=== PATIENT | female | born 1995 | race Caucasian/White ===

== ENCOUNTER 2023-08-10 07:30 | Emergency (ER) | payer OTHER, SELFPAY ==
[2023-08-10 07:35] VITALS: BP 123/84; PULSE 69; RESP 18; TEMP 37.2; O2SAT 99; BMI 31.4
--- NOTE | 2023-08-10 07:48 | DI.RAD.S_ITS ---
PROCEDURE: XR FOOT LT MIN 3V INDICATIONS: L great toe pain after foot smash injury TECHNIQUE: 3 views of the foot were acquired. COMPARISON: None. FINDINGS: Bones: Acute transverse fracture through 1st distal phalangeal tuft is seen with slight distal displacement of the fractured fragment . No other fracture or dislocation. No suspicious bony lesions. Soft tissues: Soft tissue swelling surrounding great toe is seen. No tibiotalar joint effusion. Achilles tendon appears normal. IMPRESSION: Acute slightly displaced fracture through 1st distal phalangeal tuft as above. Dictated by: Flex Hale M.D. on 08/10/2023 at 8:23 Approved by: Flex Hale M.D. on 08/10/2023 at 8:24
--- NOTE | 2023-08-10 07:49 | ED_ITS ---
HPI - Extremity Injury (Lower) General Chief Complaint: Extremity Injury, Lower Stated Complaint: smashed foot at work Time Seen by Provider: 08/10/23 07:47 Source: patient Mode of arrival: Ambulatory History of Present Illness HPI Narrative: 27-year-old female who is here for evaluation of a left great toe injury. She states while she was work she had a heavy steel casing for a bridge fall on her toe. She is no ankle tenderness. No knee tenderness. She states that her tetanus is up-to-date. Offer injuries seemed to be localized to her left great toe. Related Data Previous Rx's Medication Instructions Recorded cephalexin 500 mg capsule 500 mg PO QID 5 days #20 caps 08/10/23 hydrocodone 5 mg-acetaminophen 325 1 tab PO Q4-6H PRN pain #10 tabs 08/10/23 mg tablet Allergies Allergy/AdvReac Type Severity Reaction Status Date / Time avocado Allergy Hives Verified 08/10/23 07:42 broccoli Allergy Hives Verified 08/10/23 07:42 seafood Allergy Severe Difficulty Uncoded 08/10/23 07:42 Breathing Review of Systems Constitutional Constitutional: Reports system reviewed and no additional complaints, except as documented Musculoskeletal Musculoskeletal: Reports system reviewed and no additional complaints, except as documented Integumentary/Breasts Skin/Breast: Reports system reviewed and no additional complaints, except as documented Neurologic Neurologic: Reports system reviewed and no additional complaints, except as documented Hematologic/Lymphatic On Anticoagulants: No Patient History Social History Smoking Status: Former smoker Smoking Status: Former smoker alcohol intake frequency: a few times a week Substance Use Type: does not use Exam Initial Vital Signs Initial Vital Signs: Vital Signs Temperature 99.0 F 08/10/23 07:35 Pulse Rate 69 08/10/23 07:35 Respiratory Rate 18 08/10/23 07:35 Blood Pressure 123/84 08/10/23 07:35 Pulse Oximetry 99 08/10/23 07:35 Oxygen Delivery Method Room Air 08/10/23 07:35 HENMT Head: normal to inspection and normocephalic Cardio Pulses: dorsalis pedis present on the left Skin Other: Laceration just proximal to the left great toenail Neuro Sensory Exam: no sensory deficits noted Extrem Other: No tenderness on the left mid foot. Her left hindfoot left ankle left leg no discomfort. Home of her discomfort seems to be on the left great toe. There is a 2 cm laceration just proximal to the nail of the left toe. Procedures Laceration Repair Laceration 1: Site: other (Left great toe) Side (If applicable): left Size (cm): 2 Description: linear and other (Under nail) Depth: simple, single layer Local Anesthetic: other anesthetic (Digital block) Pre-repair: wound explored and deep structures intact Skin layer closed with: other (Chromic) Skin layer suture size: 5-0 Number of sutures: 7 Technique: simple, interrupted Nerve Block Nerve Block 1: Local Anesthetic: lidocaine 1% Amount of anesthesia used (mL): 4 Side: left Nerve Blocks: digital Procedure Successful: Yes Patient Tolerated Procedure: Well Complications: none Course Orders Ordered: ED Orders 08/10/23 07:48 XR foot LT min 3V Stat Discontinued Medications Bacitracin (Bacitracin Oint 0.9 Gm Pckt) 1 applic TOP NOW ONE Stop: 08/10/23 07:50 Lidocaine HCl (Lidocaine 1% 20 Ml) 20 ml INJ INTRA-OP ONE Stop: 08/10/23 07:49 Vital Signs Vital signs: Vital Signs - 8 hr 08/10/23 07:35 Temperature 99.0 F Pulse Rate 69 Respiratory Rate 18 Blood Pressure 123/84 Pulse Oximetry 99 Oxygen Delivery Method Room Air MDM - Extremity Injury (Lower) Imaging Data Extremity x-ray #1: Radiologist's Impression: PROCEDURE:? XR FOOT LT MIN 3V ? INDICATIONS:? L great toe pain after foot smash injury ? TECHNIQUE:? 3 views of the foot were acquired.? ? COMPARISON:? None. ? FINDINGS:? ? Bones:? Acute transverse fracture through 1st distal phalangeal tuft is seen with slight distal displacement of the fractured fragment .? No other fracture or dislocation.? No suspicious bony lesions.? ? Soft tissues:? Soft tissue swelling surrounding great toe is seen.? No tibiotalar joint effusion.? Achilles tendon appears normal.? ? ? IMPRESSION:? Acute slightly displaced fracture through 1st distal phalangeal tuft as above. [facility] Narrative Medical decision making narrative: Patient does have a left tuft fracture. No other injuries on the x-rays. She is neurovascularly intact. The left great toenail was removed and there was a laceration under this toenail. It was closed as described above. The nail was placed back into the nail bed for a biologic bandage. Will place the patient on antibiotics. Was given pain medication. Orthopedic shoe for comfort. She will need follow-up with [facility] providers for work-related issues. Was given return precautions and care instructions. She expressed understanding and agreement. Discharge Plan Departure Patient Disposition: Home Clinical Impression: Fracture of toe of left foot, Laceration Instructions: DI for Toe Fracture, DI for Laceration Repair Activity Restrictions/Additional Instructions: The stitches are absorbable. You can shower like normal. I do recommend that you cover the area with the antibiotic ointment and a bandage. Use the orthopedic shoe for your comfort. Return to the emergency department for new or worsening symptoms. Prescriptions: New cephalexin 500 mg capsule 500 mg PO QID 5 Days Qty: 20 0RF hydrocodone-acetaminophen 5-325 mg tablet 1 tab PO Q4-6H PRN (Reason: pain) Qty: 10 0RF Referrals: Otto Gates MD [Primary Care Provider] - Stand Alone Forms: Patient Portal/API
[2023-08-10] MEDS: LIDOCAINE 1% 20 ML INJ (08:30)
[2023-08-10] MEDS: BACITRACIN OINT 0.9 GM PCKT 1 APPLIC TOP (08:45)
== END 2023-08-10 08:43 | disposition home or self-care (01) ==
PROVIDERS: Emergency Provider Emergency Medicine; PCP Family Medicine
DX: S92.422B Displaced fracture of distal phalanx of left great toe, initial encounter for open fracture (principal); W20.8XXA Other cause of strike by thrown, projected or falling object, initial encounter; Y99.0 Civilian activity done for income or pay
CPT/HCPCS: 12001; 64450; 73630; 99282; 99283